=== PATIENT | female | born 1940 | race Caucasian/White ===

== ENCOUNTER 2020-02-25 08:59 | Day surgery (SDC) | payer MEDICARE, BC ==
[~2020-02-25 08:59] MED LIST: Lactated Ringers 1,000 ML IV SCH; Lidocaine 1%/Sod Bicarbonate in NS 8.4% 1 ML Syringe IDERM PRN; Sodium Chloride 0.9% 10 ML Syringe FLUSH PRN
[2020-02-25] MEDS ORDERED: Lidocaine 1% with EPINEPHrine 1:100,000 20 ML MDV ONE (09:24)
[2020-02-25] MEDS ORDERED: Sodium Chloride 0.9% 50 ML SDV ONE (09:24)
--- NOTE | 2020-02-25 09:45 | PCM.PREANE ---
Preanesthetic Assessment - Procedure Proposed Procedure: a and p repair - Anesthesia/Transfusion/Family Hx Anesthesia History: Prior Anesthesia Without Reaction Family History of Anesthesia Reaction: No Transfusion History: No Prior Transfusion(s) - Review of Systems General: No Symptoms Pulmonary: No Symptoms Cardiovascular: No Symptoms Gastrointestinal: No Symptoms Neurological: No Symptoms Other: Reports: Thyroid Problems, Depression, Anxiety - Physical Assessment NPO Status Date: 02/24/20 NPO Status Time: 22:00 Vital Signs: Last Vital Signs Temp 97.0 F 02/25/20 08:52 Pulse 68 02/25/20 08:52 Resp 17 02/25/20 08:52 BP 145/71 H 02/25/20 08:52 Pulse Ox 98 02/25/20 08:52 Height: 5 ft 3 in Weight: 68.039 kg ASA Class: 2 Mental Status: Alert & Oriented x3 Airway Class: Mallampati = 2 Dentition: Reports: Normal Dentition Thyro-Mental Finger Breadths: 3 Mouth Opening Finger Breadths: 3 ROM/Head Extension: Full Lungs: Clear to Auscultation, Normal Respiratory Effort Cardiovascular: Regular Rate, Regular Rhythm - Allergies Allergies/Adverse Reactions: Allergies Allergy/AdvReac Type Severity Reaction Status Date / Time corn Allergy Sneezing Verified 02/24/20 13:31 grass pollen Allergy Sneezing Verified 02/24/20 13:31 tree and shrub pollen Allergy Sneezing Verified 02/24/20 13:31 - Blood Blood Available: No - Acknowledgements Anesthesia Type Planned: General Anesthesia Pt an Appropriate Candidate for the Planned Anesthesia: Yes Alternatives and Risks of Anesthesia Discussed w Pt/Guardian: Yes Pt/Guardian Understands and Agrees with Anesthesia Plan: Yes PreAnesthesia Questionnaire HEENT History: Reports: Allergic Rhinitis, Impaired Vision Cardiovascular History: Reports: None Respiratory History: Reports: None Gastrointestinal History: Reports: None 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: , Other (See Below) Other OB/BYN History: x 3, amenorrhea, post menopausal, pelvic organ prolapse, mid urtheral sling Musculoskeletal History: Reports: Arthritis Neurological History: Reports: None Psychiatric History: Reports: Anxiety, Other (See Below) Other Psychiatric History: insomnia Endocrine/Metabolic History: Reports: Hypothyroidism Hematologic History: Reports: None Immunologic History: Reports: None Oncologic (Cancer) History: Reports: None Dermatologic History: Reports: None - Past Surgical History HEENT Surgical History: Reports: Cataract Surgery Cardiovascular Surgical History: Reports: None Respiratory Surgical History: Reports: None GI Surgical History: Reports: None, Colonoscopy Female Surgical History: Reports: Hysterectomy, Oophorectomy Male Surgical History: Reports: None Endocrine Surgical History: Reports: None Neurological Surgical History: Reports: None Musculoskeletal Surgical History: Reports: ORIF, Other (See Below) Other Musculoskeletal Surgeries/Procedures:: left ankle repair Oncologic Surgical History: Reports: None Dermatological Surgical History: Reports: None - SUBSTANCE USE Tobacco Use Status *Q: Never Tobacco User Tobacco Use Within Last Twelve Months: No Second Hand Smoke Exposure: No Days Per Week of Alcohol Use: 0 Recreational Drug Use History: No - HOME MEDS Home Medications: Home Meds Aspirin 81 mg PO DAILY 02/24/20 [History] Fish Oil/[place]-3 Fatty Acids [Fish Oil 1,000 MG] 1 gm PO DAILY 02/24/20 [History] Levothyroxine 75 mcg PO DAILY 02/24/20 [History] Montelukast [Singulair] 10 mg PO DAILY 02/24/20 [History] PARoxetine [Paxil] 20 mg PO DAILY 02/24/20 [History] Ubidecarenone [Coq-10] 100 mg PO DAILY 02/24/20 [History] traZODone HCl [Trazodone HCl] 25 mg PO BEDTIME PRN 02/24/20 [History] - CURRENT (IN HOUSE) MEDS Current Meds: Current Medications Lactated Ringer's (Ringers, Lactated) 1,000 mls @ 125 mls/hr IV ASDIRECTED ANA Stop: 02/25/20 23:00 Lidocaine/Sodium Bicarbonate (Buffered Lidocaine 1% In Ns 8.4%) 0.25 ml IDERM ONETIME PRN PRN Reason: Prior to IV Start Stop: 02/25/20 18:00 Sodium Chloride (Saline Flush) 10 ml FLUSH ASDIRECTED PRN PRN Reason: Keep Vein Open Stop: 02/25/20 18:00 Discontinued Medications Lidocaine/Epinephrine (Xylocaine 1% With Epinephrine 1:100,000) Confirm Administered Dose 20 ml .ROUTE .STK-MED ONE Stop: 02/25/20 09:25 Sodium Chloride (Normal Saline) Confirm Administered Dose 50 ml .ROUTE .STK-MED ONE Stop: 02/25/20 09:25
[2020-02-25] MEDS ORDERED: Propofol 200 MG/20 ML SDV ONE (10:07)
[2020-02-25] MEDS ORDERED: fentaNYL 250 MCG/5 ML SDV ONE (10:08)
[2020-02-25] MEDS ORDERED: Lidocaine 1% 4 ML ONE (10:09)
[2020-02-25] MEDS ORDERED: Dexamethasone 4 MG/ML 5 ML MDV ONE (10:09)
[2020-02-25] MEDS ORDERED: Ondansetron 4 MG/2 ML SDV ONE (10:09)
[2020-02-25] MEDS ORDERED: Rocuronium 50 MG/5 ML Vial ONE (10:11)
[2020-02-25] MEDS ORDERED: ePHEDrine Sulfate/0.9% NaCl/Pf 25 MG/5 ML SYRINGE IV ONE (10:38)
[2020-02-25] MEDS ORDERED: diphenhydrAMINE 50 MG/ML SDV IVPUSH PRN (11:00)
[2020-02-25] MEDS ORDERED: ePHEDrine 50 MG/ML SDV IVPUSH PRN (11:00)
[2020-02-25] MEDS ORDERED: fentaNYL 100 MCG/2 ML SDV IVPUSH PRN (11:00)
[2020-02-25] MEDS ORDERED: Albuterol 0.083% 2.5 MG/3 ML Neb Soln NEB PRN (11:00)
[2020-02-25] MEDS ORDERED: Ondansetron 4 MG/2 ML SDV IVPUSH PRN ×2 (11:00→11:20)
[2020-02-25] MEDS ORDERED: HYDROmorphone 0.5 MG/0.5 ML Syringe IVPUSH PRN (11:01)
[2020-02-25] MEDS ORDERED: Acetaminophen/Codeine 300-30 MG Tab PO PRN (11:19)
[2020-02-25] MEDS ORDERED: Ibuprofen 600 MG Tab PO PRN (11:19)
[2020-02-25] MEDS ORDERED: Labetalol 100 MG/20 ML MDV ONE (11:21)
--- NOTE | 2020-02-25 11:27 | PCM.OPNOTE ---
- General Post-Op/Procedure Note Date of Surgery/Procedure: 02/25/20 Operative Procedure(s): Anterior and posterior vaginal repair Findings: Grade 2 cystocele and grade 2 rectocele. Cervix, uterus, fallopian tubes and ovaries are surgically absent. Some cornification noted The cystocele consistent with chronic external exposure. Scarring noted posteriorly secondary to obstetric trauma. Pre Op Diagnosis: 1. Grade 2 cystocele. 2. Grade 2 rectocele Post-Op Diagnosis: Same Anesthesia Technique: General ET Tube Other Anesthesia Type: Lidocaine 1% with epinephrinelocal Primary Surgeon: Eric Kogn Anesthesia Provider: Annie Mcfarlane Supercharger Mechanic: Maryam Ramirez Supercharger Mechanic: Nicole Watt Reason Supercharger Mechanic Was Necessary: Retraction, assistance, patient safety, quality of care. Fluid Replacement, Intraop: 500 Output, Urine Amount: 15 EBL in mLs: 10 Drain/Tube Comments:: Red rubber catheter used to fill fluid into the bladder at the end of the case. Complications: None Condition: Good Free Text/Narrative:: Surgery duration: 32 minutes Procedure: The patient is taken to the operating room and placed in a supine position on the operating table. She received 2 g of Ancef preoperatively for infection prophylaxis. She had sequential compression stockings in place for DVT prophylaxis. Patient was administered general endotracheal anesthesia. She was placed in a dorsal lithotomy position and prepped and draped in the usual fashion. Anterior vaginal repair was performed. 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 Weighted speculum was placed in the vagina and the uppermost portion of the cystocele was identified. Two Allis clamps was placed at that uppermost p oint at a position approximately 1-1/2 cm lateral to the midline A second Allis clamp was placed approximately 2 cm from the urethral meatus. The areas and infiltrated with lidocaine quarter percent with epinephrine. Approximately 8 mL was used. The 2 lateral Allis clamps were retracted and an epithelial incision was made between the 2 clamps. A midline incision was then made with a Metzenbaum scissors. The overlying epithelium was then dissected off of the underlying vesicovaginal fascia. This all to lateral which when approximately midline was felt to be adequate to reduce the cystocele. When this was done approximately 4 trapezoidal shaped sutures of 0 Monocryl were then placed reapproximating the lateral supportive tissue midline and reducing the rectocele. At this point the excess epithelium bilaterally was removed and the epithelium was closed in a running fashion with 2 short segments to decrease likelihood of shortening of the vagina. Rectocele was then performed. The uppermost portion of the rectocele was identified and was grasped midline with an Allis clamp. The introital area was grasped at approximately the 4:00 and 8:00 positions at the junction of the vaginal and vulvar epithelium. The area of epithelium was then infiltrated with lidocaine quarter percent with epinephrine. A charan-shaped piece of epithelium was removed from the posterior introital and perineal area. The vaginal epithelium was then undermined superiorly to the top of the rectocele. Was then incised midline. With sharp and blunt dissection the epithelium was then dissected off of the underlying vesicovaginal fascia. At this point approximately 4 sutures of 0 Monocryl were placed to reapproximate the lateral supportive tissue midline and reduce the rectocele. The excess epithelium was th en excised and the epithelium overlying the rectocele repair was then reapproximated with a running suture of 3-0 Monocryl. Perineoplasty was then performed with approximately 2 V-shaped stitches of 0 Monocryl in placed to reapproximate the lateral tissue midline, rebuild the perineum about 1 cm and the vagina approximately 1 cm. The epithelium of the introitus and perineal body was then reapproximated using 3-0 Monocryl in an episiotomy repair fashion. At this time sponge, instrument and needle counts were correct. 240 ml of NS was placed into the bladder at the end of the case to allow for earlier discharge home The patient was returned to supine position and was discharged from the operating room in good condition.
--- NOTE | 2020-02-25 11:39 | PCM.POSTAN ---
POST ANESTHESIA ASSESSMENT - MENTAL STATUS Mental Status: Alert - VITAL SIGNS Vital Signs: Last Vital Signs Temp 97.8 02/25/20 1132 Pulse 77 02/25/20 1132 Resp 12 02/25/20 1132 BP 138/73 02/25/20 1132 Pulse Ox 100% 02/25/20 1132 - RESPIRATORY Respiratory Status: Respiratory Rate WNL, Airway Patent, O2 Saturation Stable, Supplemental Oxygen - CARDIOVASCULAR CV Status: Pulse Rate WNL, Blood Pressure Stable - GASTROINTESTINAL GI Status: No Symptoms - POST OP HYDRATION Hydration Status: Adequate & Stable
--- NOTE | 2020-02-25 12:53 | PCM48HPAN ---
Post Anesthesia Note - EVALUATION WITHIN 48HRS OF ANESTHETIC Vital Signs in Normal Range: Yes Patient Participated in Evaluation: Yes Respiratory Function Stable: Yes Airway Patent: Yes Cardiovascular Function Stable: Yes Hydration Status Stable: Yes Pain Control Satisfactory: Yes Nausea and Vomiting Control Satisfactory: Yes Mental Status Recovered: Yes Vital Signs: Last Vital Signs Temp 36.4 C 02/25/20 12:10 Pulse 60 02/25/20 12:41 Resp 16 02/25/20 12:41 BP 141/72 H 02/25/20 12:41 Pulse Ox 97 02/25/20 12:41
== END 2020-02-25 13:30 | disposition home or self-care (01) ==
LOC: JD.SDS 08:59
PROVIDERS: ATTEND Obstetrics & Gynecology
DX: N81.6 Rectocele (principal); N81.10 Cystocele, unspecified; F41.9 Anxiety disorder, unspecified; F32.9 Major depressive disorder, single episode, unspecified; E03.9 Hypothyroidism, unspecified; E78.5 Hyperlipidemia, unspecified; Z98.890 Other specified postprocedural states; Z90.722 Acquired absence of ovaries, bilateral; Z79.899 Other long term (current) drug therapy; Z91.018 Allergy to other foods; Z91.048 Other nonmedicinal substance allergy status
CPT/HCPCS: 57260; J0171; J1100; J2001; J2405; J2704; J2710; J3010; J3490; J7120; 00942